=== PATIENT | female | born 1960 | race Caucasian/White ===

== ENCOUNTER 2019-11-23 12:48 | Emergency (ER) | payer BC, SELFPAY ==
[2019-11-23 12:49] VITALS: BP 151/105; PULSE 115; RESP 18; TEMP 36.6; O2SAT 98; BMI 26.5
--- NOTE | 2019-11-23 13:54 | ED.VISSUMM ---
- ER Visit Summary Date of Service: 11/23/19 Chief Complaint: Nosebleed History of Present Illness: The patient is a [address] Morrison. 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 Patient reports that approximate 1 hour ago she began having bleeding from the left side of her nose. She is never had a thing like this before. She denies any injury to her nose. She is not on anticoagulants. Physical Examination: Vitals: Stable. Afebrile. General: Well-nourished and well-developed. Head: Normocephalic atraumatic. HEENT: Left nasal septum there is a total millimeter source of bleeding. There is no active bleeding at this time. There is no clot present in her nares. No clot in the oropharynx. Neck: Supple, no lymphadenopathy. No JVD. Nontender. Cardiovascular: Regular rate and rhythm. No murmurs. Respiratory: No respiratory distress. Clear to auscultation bilaterally. Abdominal: Soft, nontender, nondistended, normal bowel sounds. No guarding, rebound, or peritoneal signs. Back: Nontender. Extremities: Nontender, no edema. Skin: Normal color, no rash. Neurologic: Alert and oriented ?3. Cranial nerves II through XII are intact. Normal strength and sensation. Psych: Normal affect. Emergency Department Course and Treatment: Treatment options were discussed with the patient. She does not want this cauterized. She does not want Vaseline gauze placed. There is no bleeding. Treatment Plan: Patient is instructed to put antibiotic ointment over the area multiple times per day. Follow-up Dr. Conrad Joya in 1 week if not improving. Return to the emergency department for any worsening symptoms. Disposition: To home in improved and stable condition. Impression: 1. Nosebleed on left, resolved. This note was generated with [employer] dictation software. It may contain incorrect words, spelling, and punctuation that were not noted in review of the chart prior to signing ED Disposition - Plan for ED Patient: Disposition: Home or Assisted Living Instructions: Nosebleed Referrals: Conrad Mendoza MD [STAFF PHYSICIAN] - 3-5 Days
[2019-11-23 14:15] VITALS: BP 125/74; PULSE 82; RESP 15; O2SAT 99
== END 2019-11-23 14:16 | disposition home or self-care (01) ==
LOC: ED 14:07
PROVIDERS: Emergency Provider Emergency Medicine; PCP Internal Medicine
DX: R04.0 Epistaxis (principal); J02.9 Acute pharyngitis, unspecified; R05 Cough; E78.00 Pure hypercholesterolemia, unspecified
CPT/HCPCS: 99282